=== PATIENT | female | born 1950 | race Caucasian/White ===

== ENCOUNTER 2016-12-10 12:14 | Inpatient (IN) ==
[2016-12-10] MEDS ORDERED: 0.9 % Sodium Chloride 1,000 ML IVC ONE (13:17)
[2016-12-10] MEDS ORDERED: Ondansetron 4 MG/2 ML VIAL IVP ONE (13:17)
--- NOTE | 2016-12-10 13:24 | Emergency Department Note ---
Disposition Clinical Impression: UTI (urinary tract infection) Qualifiers: Urinary tract infection type: acute cystitis Hematuria presence: without hematuria Qualified Code(s): N30.00 - Acute cystitis without hematuria Nausea & vomiting Qualifiers: Vomiting type: unspecified Vomiting Intractability: unspecified Qualified Code( s): R11.2 - Nausea with vomiting, unspecified Disposition: Admitted As Inpatient Condition: Fair Referrals: Funmilayo Najera MD [Primary Care Provider] - Forms: ED Satisfaction Letter Time of Disposition: 16:40 General Adult HPI - General Chief complaint: ED Nausea/Vomiting/Diarrhea Stated complaint: flu like symptoms since last Source: patient Limitations: no limitations Nursing Notes Reviewed: Yes Vital Signs Reviewed: Yes - History of Present Illness HPI Narrative: 56-year-old with generalized body ache some cough. Says she feels like she has the flu. She's had nausea vomiting and diarrhea not able to keep anything down. Pt Subjective Complaint: Cough generalized body aches Onset (ago): day(s) Location: upper extremity, lower extremity Radiation: non-radiation Pain Severity: moderate Pain Scale: 8 Quality: aching Consistency: constant Improves with: nothing Worsens with: nothing Associated symptoms: Reports: cough - Related Data Allergies Allergy/AdvReac Type Severity Reaction Status Date / Time ampicillin Allergy Hives Verified 12/10/16 12:39 All systems ED: reviewed and negative except as stated. Constitutional: Denies: fever, chills, weakness, weight change Eyes: Denies: eye pain, eye discharge, vision change ENT ED: Denies: ear pain, throat pain, dental pain, hearing loss, epistaxis, congestion, dysphagia Cardiovascular: Denies: chest pain, palpitations, dyspnea on exertion, edema, syncope Respiratory: Denies: cough, dyspnea, wheezes, hemoptysis, stridor Gastrointestinal: Denies: abdominal pain, nausea, vomiting, diarrhea, constipation, hematemesis, melena, hematochezia Genitourinary: Denies: dysuria, frequency, hematuria, discharge Musculoskeletal: Reports: arthralgia, myalgia. Denies: back pain, neck pain Integumentary: Denies: rash, abrasion, lesions Neurological: Denies: headache, weakness, numbness, paresthesias, confusion, abnormal gait, vertigo Psychiatric: Denies: anxiety, depression, suicidal thoughts, homicidal thoughts , auditory hallucinations, visual hallucinations Endocrine: Denies: fatigue Hematological/Lymphatic: Denies: easy bleeding, easy bruising Allergic/Immunologic: Denies: facial swelling, urticaria Past Medical History - Past Medical History Medical history: Reports: diabetes, hypertension Psychiatric history: Reports: no psych history - Social History Smoking Status: Never smoker Smokeless Tobacco Status: No Alcohol use: Reports: none Drug use: Reports: none Physical Exam - General Limitations: no limitations General appearance: alert, in no apparent distress - Head Head exam: atraumatic, normocephalic, normal inspection - Eye Eye exam: Present: normal appearance, PERRL, EOMI - ENT ENT exam: normal exam, normal oropharynx, mucous membranes moist - Neck Neck exam: Present: normal inspection, full ROM, trachea midline - Chest Chest inspection: Present: normal inspection, symmetric chest wall rise - Respiratory Respiratory exam: Present: normal lung sounds bilaterally - Cardiovascular Cardiovascular exam: Present: regular rate, normal rhythm, normal heart sounds - Abdominal Exam Abdominal exam: Present: soft, Non-Tender. Absent: tenderness, distention, guarding, rebound, rigidity - Extremities Exam Extremities exam: Present: normal inspection, full ROM. Absent: tenderness, pedal edema - Expanded Lower Extremity Exam Neurovascular/Tendon exam: Absent: motor deficit, sensory deficit, tendon deficit Gait: observed and normal - Back Exam Back exam: Present: normal inspection, full ROM. Absent: tenderness - Neurological Exam Neurological exam: Present: alert, oriented X3 - Psychiatric Psychiatric exam: Present: normal affect, normal mood - Skin Skin exam: Present: warm, dry, intact, normal color Course - Reevaluation(s) Reevaluation #1: The patient is 66-year-old with UTI nausea vomiting low-sodium patient will be admitted for IV antibiotics and fluids. Time: 17:40 - Consultations Consultation #1: Discussed with Dr. Dipesh jones. Time: 17:40 Vital Signs Temperature 97.5 F L 12/10/16 12:36 Pulse Rate 77 12/10/16 12:36 Respiratory Rate 16 12/10/16 12:36 Blood Pressure 111/74 12/10/16 12:36 O2 Sat by Pulse Oximetry 97 12/10/16 12:36 Temperature 97.5 F L 12/10/16 12:36 Pulse Rate 78 12/10/16 17:07 Respiratory Rate 16 12/10/16 17:07 Blood Pressure 102/63 12/10/16 17:07 O2 Sat by Pulse Oximetry 92 12/10/16 17:07 Oxygen Delivery Oxygen Delivery Room Air Medical Decision Making - Lab Data Result diagrams: 12/10/16 13:43 12/10/16 13:43 Lab Results 12/10/16 12/10/16 12/10/16 Range/Units 13:43 13:43 13:43 WBC 4.9 (4.3-11.1) K/mcL RBC 4.65 (3.82-4.97) M/mcL Hgb 14.0 (11.5-15.4) g/dL Hct 39.6 (35.3-44.9) % MCV 85.2 (83.0-100.0) fL MCH 30.1 (28.0-33.3) pg MCHC 35.4 (31.6-35.5) g/dL RDW 13.3 (11.5-14.5) % Plt Count 206 (140-400) K/mcL MPV 9.0 L (9.4-12.4) fL Immature Gran % 0.6 (0-4) % Seg Neutrophils % 83.9 % Lymphocytes % 9.1 % Monocytes % 6.0 % Eosinophils % 0.0 % Basophils % 0.4 % Neutrophils # 4.1 (1.6-8.9) K/mcL Lymphocytes # 0.5 L (0.6-4.6) K/mcL Monocytes # 0.3 (0.0-1.3) K/mcL Eosinophils # 0.0 (0.0-0.6) K/mcL Basophils # 0.0 (0.0-0.2) K/mcL Reactive Lymphocytes Present A (Not Present) Platelet Estimate Normal (Normal) Sodium 121 L (136-145) mEq/L Potassium 3.3 L (3.5-4.5) mEq/L Chloride 86 L (98-109) mEq/L Carbon Dioxide 24 (19-29) mEq/L BUN 17 (7-20) mg/dL Creatinine 1.01 (0.57-1.11) mg/dL Est GFR ( Amer) > 60 (> 60) Est GFR (Non-Af Amer) 55 L (> 60) BUN/Creatinine Ratio 17 (6-26) Glucose 184 H (70-99) mg/dL Calculated Osmolality 258 L (280-300) Calcium 9.7 (8.6-10.8) mg/dL Total Bilirubin 2.0 H (0.2-1.2) mg/dL Direct Bilirubin 0.7 H (0.0-0.5) mg/dL Indirect Bilirubin 1.3 H (0.0-1.2) mg/dL AST 34 (5-34) Units/L ALT 28 (0-55) Units/L Alkaline Phosphatase 65 (38-126) Units/L Troponin I (0-0.03) ng/mL Serum Total Protein 7.2 (6.0-8.3) g/dL Albumin 3.6 (3.5-5.0) g/dL Globulin 3.6 H (2.4-3.5) g/dL Albumin/Globulin Ratio 1.0 L (1.1-2.2) Amylase 65 (25-125) Units/L Lipase 41 (8-78) Units/L Urine Color (Yellow) Urine Clarity (Clear) Urine pH (5.0-8.0) pH Units Ur Specific [place] (1.010-1.025) Urine Protein (Neg-Trace) mg/dL Urine Glucose (UA) (Normal) mg/dL Urine Ketones (Negative) mg/dL Urine Blood (Negative) Urine Nitrite (Negative) Urine Bilirubin (Negative) Urine Urobilinogen (Normal) mg/dL Ur Leukocyte Esterase (Negative) Urine Microscopic RBC (0-3) per hpf Urine Microscopic WBC (0-3) per hpf Ur Squamous Epith Cells (None-Few) per lpf Urine Bacteria (None-Few) per hpf Hyaline Casts (None-Few) per lpf Ur Culture Indicated? (NO) 12/10/16 12/10/16 Range/Units 13:43 15:26 WBC (4.3-11.1) K/mcL RBC (3.82-4.97) M/mcL Hgb (11.5-15.4) g/dL Hct (35.3-44.9) % MCV (83.0-100.0) fL MCH (28.0-33.3) pg MCHC (31.6-35.5) g/dL RDW (11.5-14.5) % Plt Count (140-400) K/mcL MPV (9.4-12.4) fL Immature Gran % (0-4) % Seg Neutrophils % % Lymphocytes % % Monocytes % % Eosinophils % % Basophils % % Neutrophils # (1.6-8.9) K/mcL Lymphocytes # (0.6-4.6) K/mcL Monocytes # (0.0-1.3) K/mcL Eosinophils # (0.0-0.6) K/mcL Basophils # (0.0-0.2) K/mcL Reactive Lymphocytes (Not Present) Platelet Estimate (Normal) Sodium (136-145) mEq/L Potassium (3.5-4.5) mEq/L Chloride (98-109) mEq/L Carbon Dioxide (19-29) mEq/L BUN (7-20) mg/dL Creatinine (0.57-1.11) mg/dL Est GFR ( Amer) (> 60) Est GFR (Non-Af Amer) (> 60) BUN/Creatinine Ratio (6-26) Glucose (70-99) mg/dL Calculated Osmolality (280-300) Calcium (8.6-10.8) mg/dL Total Bilirubin (0.2-1.2) mg/dL Direct Bilirubin (0.0-0.5) mg/dL Indirect Bilirubin (0.0-1.2) mg/dL AST (5-34) Units/L ALT (0-55) Units/L Alkaline Phosphatase (38-126) Units/L Troponin I 0.01 (0-0.03) ng/mL Serum Total Protein (6.0-8.3) g/dL Albumin (3.5-5.0) g/dL Globulin (2.4-3.5) g/dL Albumin/Globulin Ratio (1.1-2.2) Amylase (25-125) Units/L Lipase (8-78) Units/L Urine Color Yellow (Yellow) Urine Clarity Cloudy A (Clear) Urine pH 6.0 (5.0-8.0) pH Units Ur Specific [place] 1.022 (1.010-1.025) Urine Protein Trace (Neg-Trace) mg/dL Urine Glucose (UA) Normal (Normal) mg/dL Urine Ketones Negative (Negative) mg/dL Urine Blood Negative (Negative) Urine Nitrite Negative (Negative) Urine Bilirubin Negative (Negative) Urine Urobilinogen Normal (Normal) mg/dL Ur Leukocyte Esterase Moderate H (Negative) Urine Microscopic RBC 3-5 H (0-3) per hpf Urine Microscopic WBC 50-100 H (0-3) per hpf Ur Squamous Epith Cells Many H (None-Few) per lpf Urine Bacteria None Seen (None-Few) per hpf Hyaline Casts Few (None-Few) per lpf Ur Culture Indicated? YES A (NO) - Radiology Data Radiology results reviewed: Yes I reviewed the patient's radiology results. Chest X-Ray 12/10/16 13:22 IMPRESSION: 1. No acute abnormality. D/ / Boyd Voss MD / Boyd Voss MD Interpreting Provider: Boyd Voss MD Abdomen/Pelvis CT 12/10/16 15:42 IMPRESSION: 1. No acute intra-abdominal process identified. 2. Focal region of hypoattenuation within the liver adjacent to the gallbladder fossa which is indeterminate and likely reflects focal fatty infiltration given its appearance and location. D/ / Binh Garsia MD / Binh Garsia MD Interpreting Provider: Binh Garsia MD
[2016-12-10 13:52] LABS: Basophils % 0.4 %; Hematocrit 39.6 % (35.3-44.9); Immature Granulocytes % 0.6 % (0-4); Lymphocytes % 9.1 %; Mean Corpuscular HGB Conc 35.4 g/dL (31.6-35.5); Mean Corpuscular Hemoglobin 30.1 pg (28.0-33.3); Mean Corpuscular Volume 85.2 fL (83.0-100.0); Monocytes # 0.3 K/mcL (0.0-1.3); Neutrophils # 4.1 K/mcL (1.6-8.9); Platelet Count 206 K/mcL (140-400); Red Blood Count 4.65 M/mcL (3.82-4.97); Red Cell Distribution Width 13.3 % (11.5-14.5); Segmented Neutrophils % 83.9 %
[2016-12-10 13:56] LABS: Lymphocytes # 0.5 K/mcL (0.6-4.6)
[2016-12-10 14:07] LABS: Albumin 3.6 g/dL (3.5-5.0); Bilirubin,Direct 0.7 mg/dL (0.0-0.5); Bilirubin,Indirect 1.3 mg/dL (0.0-1.2); Globulin 3.6 g/dL (2.4-3.5); Total Protein 7.2 g/dL (6.0-8.3)
[2016-12-10 14:15] LABS: Platelet Estimate Normal (Normal); Reactive Lymphocytes Present (Not Present)
[2016-12-10 14:28] LABS: BUN/Creatinine Ratio 17 (6-26); Blood Urea Nitrogen 17 mg/dL (7-20); Calcium 9.7 mg/dL (8.6-10.8); Carbon Dioxide 24 mEq/L (19-29); Chloride 86 mEq/L (98-109); Glucose 184 mg/dL (70-99); Lipase 41 Units/L (8-78); Osmolality,Calculated 258 (280-300); Potassium 3.3 mEq/L (3.5-4.5); Sodium 121 mEq/L (136-145); eGFR For African Americans > 60 (> 60); eGFR For Non-African Americans 55 (> 60)
[2016-12-10 15:45] LABS: Bilirubin,Urine Negative (Negative); Blood,Urine Negative (Negative); Clarity,Urine Cloudy (Clear); Color,Urine Yellow (Yellow); Glucose,Urine (UA) Normal (Normal); Ketones,Urine Negative (Negative); Leukocyte Esterase,Urine Moderate (Negative); Nitrite,Urine Negative (Negative); Protein,Urine Trace mg/dL (Neg-Trace); Specific Gravity,Urine 1.022 (1.010-1.025); Urobilinogen,Urine Normal (Normal)
[2016-12-10 15:48] LABS: Bacteria,Urine None Seen per hpf (None-Few); Hyaline Casts,Urine Few per lpf (None-Few); Squamous Epithelial Cell,Urine Many per lpf (None-Few); WBC,Urine 50-100 per hpf (0-3)
[2016-12-10] MEDS ORDERED: Levofloxacin 500 MG/100 ML 500 MG/100 ML BAG IVPB ONE (16:01)
[2016-12-10] MEDS: Ondansetron 4 MG/2 ML VIAL IVP PRN (19:11)
[2016-12-10] MEDS ORDERED: 0.9 % Sodium Chloride 1,000 ML ONE (19:20)
--- NOTE | 2016-12-10 19:44 | Internal Med History&Physical ---
Date of Encounter: 12/10/16 Time of Encounter: 19:42 Assessment and Plan (1) Enteritis Current visit: Yes Status: Acute Hydrate. symptomatic treatment. check stool studies. suspect viral etiology. Hold metformin (2) Hyponatremia Current visit: Yes Status: Acute Hypovolemic hyponatremia due to diarrhea. She had received a bolus of normal saline 1L in the emergency room. Will check sodium every 4 hours and adjust fluids accordingly. Plan to increase sodium no faster than .5 mEq per hour and 8 to 10 mEq per day. (3) Diabetes mellitus type 2 in obese Current visit: Yes Status: Acute Sliding scale insulin (4) UTI (urinary tract infection) Current visit: Yes Status: Acute Levaquin. Check urine culture Qualifiers: Urinary tract infection type: acute cystitis Hematuria presence: without hematuria Qualified Code(s): N30.00 - Acute cystitis without hematuria Internal Medicine - H&P: HPI Chief complaint: nausea and diarrhea History of present illness: Ms. Gale is a 66 year old female with history of diabetes mellitus type II on metformin, hypertension, Gerd presents to the emergency room today with a complaint of nausea and diarrhea. For the past couple days patient has been nauseous unable to tolerate any food or drinks, she has been having watery diarrhea approximately 4 bowel movements daily without mucus or blood. She has been having subjective fevers and chills. She denies abdominal pain. No suspicious food intake. No sick contacts a recent travel. Past Med Surg Social Fam HX - Past Medical History Medical history: diabetes, hypertension Psychiatric history: no psych history - Past Surgical History Surgical History: colectomy, hysterectomy - Social History Smoking Status: Never smoker Smokeless Tobacco Status: No Alcohol use: none Drug use: none - Family History Mother Hx Family Cardiac Disorders: Yes Hx Family Respiratory Disorders: No Hx Family Cancer: No Hx Family GI Disorders: No Hx Family Genitourinary Disorders: No Hx Family Endocrine Disorder: No Hx Family Musculoskeletal Disorders: No Hx Family Neuromuscular Disorders: No Hx Family Neurologic Disorders: No Hx Family HEENT Disorders: No Hx Family Autoimmune Disorders: No Hx Family Reproductive Disorders: No Hx Family Psychosocial Disorders: No Father Living Status: Hx Family Cardiac Disorders: Yes Hx Family Respiratory Disorders: Yes Hx Family Cancer: Yes Hx Family GI Disorders: No Hx Family Genitourinary Disorders: No Hx Family Endocrine Disorder: No Hx Family Musculoskeletal Disorders: No Hx Family Neuromuscular Disorders: No Internal Medicine - H&P: Meds Atenolol [Tenormin] 50 mg PO DAILY 12/10/16 [History] Atorvastatin [Lipitor] 10 mg PO HS 12/10/16 [History] Famotidine [Heartburn Prevention] 20 mg PO BID 12/10/16 [History] Lisinopril-HCTZ 20-12.5 [Prinzide 20-12.5] 2 each PO DAILY 12/10/16 [History] Metformin HCl [Glucophage] 1,000 mg PO BID 12/10/16 [History] Allergies ampicillin Allergy (Verified 12/10/16 12:39) Hives All Systems PM: A 10-system review of systems was performed and is negative for pertinent findings except as documented above in the HPI. Review of systems: 10 point review of systems is negative except for HPI - Constitutional Vitals: Temp Pulse Resp BP Pulse Ox 98.2 F 66 16 105/65 96 12/10/16 19:03 12/10/16 19:03 12/10/16 19:03 12/10/16 18:58 12/10/16 19:03 Exam: Gen.: patient is alert oriented times 3 cardiac: normal S1 S2 no additional sounds or murmurs chest: no active wheezing or bronchial breathing abdomen soft nontender nondistended normal bowel sounds lower extremity no swelling. Neuro: no new focal deficits Internal Med - H&P Results - Labs CBC & Chem 7: 12/10/16 13:43 12/10/16 13:43
[2016-12-10] MEDS: Insulin LISPRO 300 UNITS/3 ML VIAL SQ SCH (20:19)
[2016-12-11] MEDS: Ondansetron 4 MG/2 ML VIAL IVP PRN (00:30)
[2016-12-11] MEDS: *HR* Promethazine 25 MG/ML VIAL IVP PRN ×3 (03:03→19:42)
[2016-12-11 04:11] LABS: Basophils % 0.5 %; Hematocrit 35.8 % (35.3-44.9); Hemoglobin 12.6 g/dL (11.5-15.4); Lymphocytes # 0.7 K/mcL (0.6-4.6); Lymphocytes % 18.1 %; Mean Corpuscular HGB Conc 35.2 g/dL (31.6-35.5); Mean Corpuscular Hemoglobin 30.4 pg (28.0-33.3); Mean Corpuscular Volume 86.3 fL (83.0-100.0); Mean Platelet Volume 9.8 fL (9.4-12.4); Monocytes # 0.3 K/mcL (0.0-1.3); Monocytes % 8.7 %; Neutrophils # 2.8 K/mcL (1.6-8.9); Platelet Count 181 K/mcL (140-400); Red Blood Count 4.15 M/mcL (3.82-4.97); Red Cell Distribution Width 13.4 % (11.5-14.5); Segmented Neutrophils % 71.7 %
[2016-12-11 04:26] LABS: BUN/Creatinine Ratio 15 (6-26); Blood Urea Nitrogen 15 mg/dL (7-20); Calcium 8.8 mg/dL (8.6-10.8); Carbon Dioxide 25 mEq/L (19-29); Chloride 89 mEq/L (98-109); Glucose 152 mg/dL (70-99); Magnesium 1.9 mg/dL (1.6-2.6); Osmolality,Calculated 266 (280-300); Potassium 3.5 mEq/L (3.5-4.5); Sodium 126 mEq/L (136-145); eGFR For African Americans > 60 (> 60); eGFR For Non-African Americans 55 (> 60)
[2016-12-11 05:07] LABS: Platelet Estimate Normal (Normal)
[2016-12-11] MEDS: Insulin LISPRO 300 UNITS/3 ML VIAL SQ SCH ×4 (08:42→20:54)
[2016-12-11] MEDS: Famotidine 20 MG/2 ML VIAL IVP SCH (08:44)
--- NOTE | 2016-12-11 13:28 | Internal Med Progress Note ---
<CarlossherryDany peng - Last Filed: 12/11/16 13:25> Date of Encounter: 12/11/16 Time of Encounter: 09:45 - Assessment and plan (1) Enteritis Current Visit: Yes Status: Acute Assessment and plan: Likely viral in origin, no food exposure, no sick contacts, no travel outside the country, no recent antibiotic use. No blood or mucus in the stool. Patient has not had a BM in hospital. Will check Stool once she does. Continue phenergen and zofran for nausea (2) Hyponatremia Current Visit: Yes Status: Acute Assessment and plan: likely secondary to diarrhea. Patient had Na of 121 upon admission. She was given 1 L bolus NS in ED. She was started on NS at a rate of /hr and her Q4 Na has gone 125, 126, 126, 124, 127. Her IV fluids were stopped. Continue to correct Na at a rate of 8-10 a day. (3) Diabetes mellitus type 2 in obese Current Visit: Yes Status: Acute Assessment and plan: Hold metformin continue SSI. continue home HTN and HLD medications. (4) UTI (urinary tract infection) Current Visit: Yes Status: Acute Assessment and plan: Patient's UA showed Cloudy urine, mod leukesterase, 3-5 RBC 50-100 WBC, no bacteria, and many squamous epithelial cells. It grew no organisms on culture. Likely a contaminiated UA. Will discontinue Levaquin as patient is asymptomatic and culture negative. Qualifiers: Urinary tract infection type: acute cystitis Hematuria presence: without hematuria Qualified Code(s): N30.00 - Acute cystitis without hematuria - Subjective Interval history: Patient admitted for Nausea and Diarrhea for the last 2 days. Patient was not tolerating PO intake at home. and had subjective fever/chills and myalgias. Patient reports continued nausea. Denies BM since admission, no vomiting, no burnign with urination, and myalgias have improved. Urine culture negative. - Constitutional Vitals: Temp Pulse Resp BP Pulse Ox 98.2 F 65 14 104/71 97 12/11/16 11:39 12/11/16 11:39 12/11/16 11:39 12/11/16 11:39 12/11/16 11:39 General appearance: Present: A&O X 3, no acute distress - Eye Eye exam: Present: PERRL - ENT ENT exam: Present: mucous membranes moist - Respiratory Respiratory exam: Present: CTAB. Absent: rales, rhonchi, wheezes - Cardiovascular Cardiovascular exam: Present: RRR, +S1, +S2. Absent: gallop, rubs, systolic murmur - GI/Abdominal GI/Abdominal exam: Present: normal bowel sounds, soft. Absent: tenderness - Extremities Exam Extremities exam: Absent: calf tenderness, cyanotic, pedal edema - Neurological Exam Neurological exam: Present: alert, oriented X3. Absent: speech deficit - Psychiatric Psychiatric exam: Present: normal affect, normal mood - Skin Skin exam: Present: dry, warm Internal Medicine: Result - Labs CBC & Chem 7: 12/11/16 03:16 12/11/16 07:33 Labs: Short CBC 12/11/16 Range/Units 03:16 WBC 3.9 L (4.3-11.1) K/mcL Hgb 12.6 (11.5-15.4) g/dL Hct 35.8 (35.3-44.9) % Plt Count 181 (140-400) K/mcL Neutrophils # 2.8 (1.6-8.9) K/mcL BMP 12/10/16 12/11/16 12/11/16 20:00 00:51 03:16 Sodium 125 L 126 L 126 L Potassium 3.5 Chloride 89 L Carbon Dioxide 25 BUN 15 Creatinine 1.01 Glucose 152 H Calcium 8.8 12/11/16 12/11/16 03:16 07:33 Sodium 124 L 127 L Potassium Chloride Carbon Dioxide BUN Creatinine Glucose Calcium Consult Discharge Plan - Plan Referrals: Funmilayo Najera MD [Primary Care Provider] - <Zack Kemp - Last Filed: 12/11/16 18:35> Date of Encounter: 12/11/16 - Constitutional Vitals: Temp Pulse Resp BP Pulse Ox 97.7 F 61 15 98/62 95 12/11/16 14:41 12/11/16 14:41 12/11/16 14:41 12/11/16 14:41 12/11/16 14:41 Internal Medicine: Result - Labs CBC & Chem 7: 12/11/16 03:16 12/11/16 14:26 Labs: Short CBC 12/11/16 Range/Units 03:16 WBC 3.9 L (4.3-11.1) K/mcL Hgb 12.6 (11.5-15.4) g/dL Hct 35.8 (35.3-44.9) % Plt Count 181 (140-400) K/mcL Neutrophils # 2.8 (1.6-8.9) K/mcL BMP 12/10/16 12/11/16 12/11/16 20:00 00:51 03:16 Sodium 125 L 126 L 126 L Potassium 3.5 Chloride 89 L Carbon Dioxide 25 BUN 15 Creatinine 1.01 Glucose 152 H Calcium 8.8 12/11/16 12/11/16 12/11/16 03:16 07:33 14:26 Sodium 124 L 127 L 125 L Potassium Chloride Carbon Dioxide BUN Creatinine Glucose Calcium - Attending Attestation I examined this patient and my medical decision-making was reviewed with the Resident Physician, Dr. Martinez. I agree with the documented findings, disposition and treatment plan as described except to the extent set forth below. I have independently obtained history and examined the patient and my findings are summarized below: Patient reports that her vomiting and diarrhea has resolved she continues to have nausea and decreased oral intake. We will continue with Levaquin and IV fluids. Supportive care.
--- NOTE | 2016-12-11 15:23 | Electrocardiograph Report ---
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
[2016-12-11] MEDS ORDERED: Levofloxacin 500 MG/100 ML 500 MG/100 ML BAG IVPB SCH (16:00)
[2016-12-11] MEDS: 0.9 % Sodium Chloride 1,000 ML IVC SCH (17:33)
[2016-12-12 03:50] LABS: Hematocrit 37.7 % (35.3-44.9); Hemoglobin 13.3 g/dL (11.5-15.4); Mean Corpuscular HGB Conc 35.3 g/dL (31.6-35.5); Mean Corpuscular Hemoglobin 30.4 pg (28.0-33.3); Mean Corpuscular Volume 86.1 fL (83.0-100.0); Mean Platelet Volume 9.7 fL (9.4-12.4); Platelet Count 195 K/mcL (140-400); Red Blood Count 4.38 M/mcL (3.82-4.97); Red Cell Distribution Width 13.5 % (11.5-14.5)
[2016-12-12] MEDS: 0.9 % Sodium Chloride 1,000 ML IVC SCH (03:53)
[2016-12-12 04:00] LABS: BUN/Creatinine Ratio 13 (6-26); Blood Urea Nitrogen 12 mg/dL (7-20); Calcium 8.9 mg/dL (8.6-10.8); Carbon Dioxide 27 mEq/L (19-29); Chloride 96 mEq/L (98-109); Glucose 121 mg/dL (70-99); Osmolality,Calculated 275 (280-300); Potassium 3.2 mEq/L (3.5-4.5); eGFR For African Americans > 60 (> 60); eGFR For Non-African Americans > 60 (> 60)
[2016-12-12 04:02] LABS: Sodium 132 mEq/L (136-145)
[2016-12-12] MEDS ORDERED: Potassium Chloride Elixir 20 MEQ/15 ML UDC PO ONE (08:01)
[2016-12-12] MEDS: Insulin LISPRO 300 UNITS/3 ML VIAL SQ SCH ×2 (08:08→12:27)
[2016-12-12] MEDS: Famotidine 20 MG/2 ML VIAL IVP SCH (08:16)
[2016-12-12 10:54] VITALS: BP 105/63
--- NOTE | 2016-12-12 12:56 | Discharge Summary ---
Date of Encounter: 12/12/16 Time of Encounter: 12:15 - Discharge Diagnosis (1) Enteritis Priority: Primary Status: Acute Comments: Patient was able tolerate a regular diet prior to discharge. No bowel movements while admitted. (2) Nausea & vomiting Priority: Primary Status: Resolved Qualifiers: Vomiting type: unspecified Vomiting Intractability: non-intractable Qualified Code(s): R11.2 - Nausea with vomiting, unspecified (3) Hypokalemia Priority: Primary Status: Acute Comments: Repleted prior to discharge, likely resolved. Mild. Magnesium normal. Diarrhea has subsided, follow-up outpatient (4) UTI (urinary tract infection) Priority: Primary Status: Ruled-out Comments: Patient asymptomatic and urine culture negative. Ruled out. Qualifiers: Urinary tract infection type: acute cystitis Hematuria presence: without hematuria Qualified Code(s): N30.00 - Acute cystitis without hematuria (5) Hyponatremia Priority: Primary Status: Acute Comments: Improved and nearly resolved during admission. No prior lab values to determine chronicity. Likely secondary to poor by mouth intake secondary to gastroenteritis. Tolerated a regular diet prior to discharge. (6) Diabetes mellitus type 2 in obese Priority: Secondary Status: Chronic Comments: Appears well controlled, no recent A1c. Continue follow up outpatient. - Discharge Medications Prescriptions: Promethazine [Phenergan] 12.5 mg PO Q6HR PRN #15 tablet PRN Reason: Nausea And Vomiting Home Medications: Atenolol [Tenormin] 50 mg PO DAILY 12/10/16 [History] Atorvastatin [Lipitor] 10 mg PO HS 12/10/16 [History] Famotidine [Heartburn Prevention] 20 mg PO BID 12/10/16 [History] Lisinopril-HCTZ 20-12.5 [Prinzide 20-12.5] 2 each PO DAILY 12/10/16 [History] Metformin HCl [Glucophage] 1,000 mg PO BID 12/10/16 [History] Cetirizine HCl [Zyrtec] 10 mg PO DAILY 12/11/16 [History] Promethazine [Phenergan] 12.5 mg PO Q6HR PRN #15 tablet 12/12/16 [Rx] Allergies/Adverse Reactions: Allergies ampicillin Allergy (Verified 12/10/16 12:39) Hives Date of admission: 12/10/16 17:46 Primary care physician: Funmilayo Najera Consults: 12/10/16 19:34 Consult to Occupational Therapy [CONS] Routine Comment: Evaluate, develop and implement POC Reason for Consult: weakness Consult to Physical Therapy [CONS] Routine Comment: Evaluate, develop and implement POC Reason for Consult: weakness 12/11/16 10:06 Consult to Air Route Controller [CONS] Routine Reason for SW Consult: discharge planning Discharging clinician: Lynda Gimenez Anticipated date of discharge: 12/12/16 - Patient Status Disposition: Home, Self-Care Condition: Fair Functional capacity at discharge: independent ambulation Overall status at discharge: patient is back to baseline - Discharge Instructions Follow Up With: Funmilayo Najera MD [Primary Care Provider] - Additional Instructions: Follow-up with primary care provider within one to 2 weeks - Diet and Activity Activity: increase activity as tolerated Diet: diabetic diet Hospital course: Ms. Gale is a 66 year old female with past medical history of diabetes, hypertension, GERD, prior colectomy, prior hysterectomy. Patient presented to the emergency department chief complaint of nausea and diarrhea. Patient stating on the 2-3 days prior to presentation, she was nauseous and unable to tolerate any food or drink. She also endorsed watery diarrhea approximately 4 times a day. She denied mucus or blood in her stools. Patient also endorsed subjective fevers and chills. She denied abdominal pain. She denied recent sick contacts or recent travel. Workup in the emergency department notable for hyponatremia and hypoosmolality, mild hypokalemia. Chest x-ray negative. Abdominal CT negative for acute processes. Patient was admitted to the hospitalist service for further evaluation and management. She was treated with IV fluids and anti-emetics. She was admitted and observed over the course of 2 nights. Her hyponatremia and hypoosmolality improved. Abnormal urinalysis noted however urine culture was negative and the patient was asymptomatic so urinary tract infection was ruled out. She did not have any bowel movements while admitted, her diarrhea had resolved. She was able tolerate a regular diet while admitted. She was seen and evaluated by occupational and physical therapy both of him surmised she had no needs. She was discharged home in stable condition with close outpatient follow-up recommended. Of note, patient stating she felt "sweaty and out of it" after she had been given IV ondansetron so she was sent home with Phenergan. ITS Impressions Chest X-Ray 12/10/16 13:22 IMPRESSION: 1. No acute abnormality. D/ / Boyd Voss MD / Boyd Voss MD Interpreting Provider: Boyd Voss MD Abdomen/Pelvis CT 12/10/16 15:42 IMPRESSION: 1. No acute intra-abdominal process identified. 2. Focal region of hypoattenuation within the liver adjacent to the gallbladder fossa which is indeterminate and likely reflects focal fatty infiltration given its appearance and location. D/ / Binh Garsia MD / Binh Garsia MD Interpreting Provider: Binh Garsia MD - Time Spent with Patient Total time spent providing and/or coordinating discharge services: - Constitutional Vitals: Temp Pulse Resp BP Pulse Ox 99.0 F 69 15 105/63 97 12/12/16 10:53 12/12/16 10:53 12/12/16 10:53 12/12/16 10:53 12/12/16 10:53 General appearance: Present: A&O X 3, pleasant, no acute distress, answers questions appropriately - Head Head exam: Present: atraumatic, normocephalic - Eye Eye exam: Present: PERRL, conjuntiva pink, sclera anicteric Pupils: Present: PERRL - Neck Neck exam general surgery: Present: supple, trachea midline. Absent: lymphadenopathy - Respiratory Respiratory exam: Present: CTAB. Absent: accessory muscle use, rales, respiratory distress, rhonchi, wheezes - Cardiovascular Cardiovascular exam: Present: RRR, +S1, +S2. Absent: diastolic murmur, gallop, rubs, systolic murmur - GI/Abdominal GI/Abdominal exam: Present: normal bowel sounds, soft, no peritoneal signs. Absent: distended, tenderness - Extremities Exam Extremities exam: Present: warm, radial pulses palpable and symetrical. Absent : calf tenderness, cyanotic, pedal edema - Neurological Exam Neurological exam: Present: alert, CN II-XII intact, normal gait, oriented X3, no focal deficits, strengths equal and symetr throughout. Absent: pronater drift, facial droop, speech deficit - Skin Skin exam: Present: dry, intact, normal color, warm
== END 2016-12-12 14:20 | disposition home or self-care (01) | DRG 392 ==
LOC: EMEROO 12:14 → 3BNU 12:14 → SUATTDRO 17:46 → 3BNU 18:00
PROVIDERS: ADMIT Hospitalist; ATTEND Nurse Practitioner Family

== ENCOUNTER 2019-02-02 12:07 | Observation (INO) ==
[2019-02-02] MEDS ORDERED: Ondansetron 4 MG/2 ML VIAL IVP ONE (13:10)
[2019-02-02] MEDS ORDERED: 0.9 % Sodium Chloride 1,000 ML IVC ONE (13:10)
[2019-02-02 13:35] LABS: Basophils % 0.2 %; Eosinophils # 0.1 K/mcL (0.0-0.6); Eosinophils % 0.6 %; Hematocrit 35.4 % (35.3-44.9); Hemoglobin 12.1 g/dL (11.5-15.4); Immature Granulocytes % 0.6 % (0-4); Lymphocytes # 1.3 K/mcL (0.6-4.6); Lymphocytes % 9.2 %; Mean Corpuscular HGB Conc 34.2 g/dL (31.6-35.5); Mean Corpuscular Hemoglobin 28.3 pg (28.0-33.3); Mean Corpuscular Volume 82.9 fL (83.0-100.0); Monocytes # 0.7 K/mcL (0.0-1.3); Monocytes % 5.2 %; Neutrophils # 11.8 K/mcL (1.6-8.9); Platelet Count 430 K/mcL (140-400); Red Blood Count 4.27 M/mcL (3.82-4.97); Segmented Neutrophils % 84.2 %
[2019-02-02 13:37] LABS: VBG HCO3 26 mEq/L (21-27); VBG PCO2 50 mmHg (41-51); VBG PH 7.33 pH Units (7.32-7.42); VBG PO2 52 mmHg (25-50)
[2019-02-02 13:46] LABS: Bilirubin,Urine Moderate (Negative); Blood,Urine Negative (Negative); Clarity,Urine Clear (Clear); Color,Urine Dark Yellow (Yellow); Glucose,Urine (UA) Normal (Normal); Ketones,Urine Negative (Negative); Leukocyte Esterase,Urine Negative (Negative); Nitrite,Urine Negative (Negative); Protein,Urine Trace mg/dL (Neg-Trace); Specific Gravity,Urine > 1.030 (1.010-1.025); Urobilinogen,Urine Normal (Normal)
[2019-02-02 13:56] LABS: BUN/Creatinine Ratio 13 (6-26); Blood Urea Nitrogen 17 mg/dL (8-23); Calcium 10.1 mg/dL (8.6-10.3); Carbon Dioxide 22 mEq/L (23-29); Chloride 87 mEq/L (98-107); Glucose 151 mg/dL (70-105); Magnesium 1.6 mg/dL (1.6-2.6); Osmolality,Calculated 248 (280-300); Potassium 4.6 mEq/L (3.5-5.1); Sodium 117 mEq/L (136-145); Troponin I < 0.03 ng/mL (< 0.04); eGFR For African Americans 49 (> 60); eGFR For Non-African Americans 41 (> 60)
[2019-02-02 15:31] LABS: Albumin/Globulin Ratio 1.6 (1.1-2.2); Bilirubin,Direct 0.1 mg/dL (0.0-0.2); Bilirubin,Indirect 0.4 mg/dL (0.0-1.2); Bilirubin,Total 0.5 mg/dL (0.3-1.0); Globulin 2.5 g/dL (2.4-3.5); Total Protein 6.5 g/dL (6.4-8.9)
[2019-02-02] MEDS ORDERED: Naloxone 0.4 MG/ML INJ IVP PRN (16:30)
[2019-02-02] MEDS ORDERED: Ondansetron ODT 4 MG TAB.RAPDIS SL PRN (16:30)
[2019-02-02] MEDS ORDERED: D5% in Water 1,000 ML IVC PRN (17:19)
[2019-02-02] MEDS ORDERED: *HR* Dextrose 50 % in Water (Syg) 50 ML SYRINGE IVP PRN (17:19)
[2019-02-02] MEDS ORDERED: Dextrose Gel 15 GM/37.5 ML TUBE PO PRN ×2 (17:19)
[2019-02-02] MEDS: 0.9 % Sodium Chloride 1,000 ML IVC SCH (17:54)
[2019-02-02] MEDS: Insulin LISPRO 300 UNITS/3 ML VIAL SQ SCH (18:32)
[2019-02-02 19:49] LABS: Calcium 9.7 mg/dL (8.6-10.3); Potassium 4.1 mEq/L (3.5-5.1)
[2019-02-02] MEDS ORDERED: Insulin LISPRO 300 UNITS/3 ML VIAL SQ SCH (21:00)
[2019-02-02] MEDS ORDERED: Gabapentin 300 MG CAPSULE PO SCH (21:00)
[2019-02-02 23:48] LABS: Calcium 9.3 mg/dL (8.6-10.3); Potassium 4.3 mEq/L (3.5-5.1)
[2019-02-03] MEDS: 0.9 % Sodium Chloride 1,000 ML IVC SCH (03:22)
[2019-02-03 04:06] LABS: Hematocrit 33.5 % (35.3-44.9); Hemoglobin 11.1 g/dL (11.5-15.4); Mean Corpuscular HGB Conc 33.1 g/dL (31.6-35.5); Mean Corpuscular Hemoglobin 28.2 pg (28.0-33.3); Mean Corpuscular Volume 85.2 fL (83.0-100.0); Mean Platelet Volume 8.8 fL (9.4-12.4); Platelet Count 361 K/mcL (140-400); Red Blood Count 3.93 M/mcL (3.82-4.97); Red Cell Distribution Width 15.5 % (11.5-14.5); White Blood Count 8.7 K/mcL (4.3-11.1)
[2019-02-03 04:25] LABS: Calcium 9.1 mg/dL (8.6-10.3); Potassium 4.2 mEq/L (3.5-5.1)
[2019-02-03 07:16] VITALS: BP 106/70
[2019-02-03] MEDS: Insulin LISPRO 300 UNITS/3 ML VIAL SQ SCH (08:06)
[2019-02-03 08:10] LABS: Creatinine,Urine 26 mg/dL
[2019-02-03 08:11] LABS: BUN/Creatinine Ratio 12 (6-26); Blood Urea Nitrogen 13 mg/dL (8-23); Calcium 9.4 mg/dL (8.6-10.3); Carbon Dioxide 28 mEq/L (23-29); Chloride 98 mEq/L (98-107); Glucose 121 mg/dL (70-105); Osmolality,Calculated 273 (280-300); Potassium 4.3 mEq/L (3.5-5.1); Sodium 131 mEq/L (136-145); eGFR For African Americans > 60 (> 60); eGFR For Non-African Americans 50 (> 60)
[2019-02-03] MEDS ORDERED: Aspirin Enteric Coated 81 MG Tablet PO SCH (09:00)
[2019-02-03] MEDS ORDERED: hydroCHLOROthiazide 25 MG TABLET PO SCH (09:00)
[2019-02-03] MEDS ORDERED: Cyanocobalamin (B-12) 1,000 MCG TABLET PO SCH (09:00)
[2019-02-03] MEDS ORDERED: Valsartan 80 MG TABLET PO SCH (09:00)
== END 2019-02-03 11:32 | disposition home or self-care (01) ==
LOC: EMEROOARM 12:07 → 2ANU 12:07 → SUATTDRO 15:09 → 2ANU 15:10
PROVIDERS: ADMIT Family Medicine; ATTEND Family Medicine

== ENCOUNTER 2019-11-30 13:01 | Observation (INO) ==
[2019-11-30] MEDS ORDERED: 0.9 % Sodium Chloride 1,000 ML IVC ONE (13:14)
[2019-11-30 13:24] LABS: Hematocrit 42.2 % (35.3-44.9); Mean Corpuscular HGB Conc 33.2 g/dL (31.6-35.5); Mean Corpuscular Volume 87.4 fL (83.0-100.0); Mean Platelet Volume 9.1 fL (9.4-12.4); Platelet Count 444 K/mcL (140-400); Red Blood Count 4.83 M/mcL (3.82-4.97); Red Cell Distribution Width 14.3 % (11.5-14.5); White Blood Count 9.9 K/mcL (4.3-11.1)
[2019-11-30 13:30] LABS: INR 0.9; Prothrombin Time 10.7 Seconds (9.4-12.1)
[2019-11-30 13:33] LABS: Activated Partial Thrombo Time 29.7 Seconds (26.0-36.0)
[2019-11-30 13:35] LABS: BUN/Creatinine Ratio 16 (6-26); Blood Urea Nitrogen 15 mg/dL (8-23); Calcium 10.9 mg/dL (8.6-10.3); Carbon Dioxide 29 mEq/L (23-29); Chloride 90 mEq/L (98-107); Creatine Kinase 58 Units/L (30-223); Glucose 144 mg/dL (70-105); Osmolality,Calculated 275 (280-300); Potassium 3.9 mEq/L (3.5-5.1); Sodium 131 mEq/L (136-145); eGFR For African Americans > 60 (> 60); eGFR For Non-African Americans > 60 (> 60)
[2019-11-30 13:37] LABS: Troponin I < 0.03 ng/mL (< 0.04)
[2019-11-30] MEDS ORDERED: Isovue-370 500 ML BOTTLE IVP ONE (13:38)
[2019-11-30] MEDS ORDERED: Aspirin 325 MG TABLET PO ONE (13:48)
[2019-11-30 15:00] LABS: Bilirubin,Urine Negative (Negative); Blood,Urine Negative (Negative); Clarity,Urine Clear (Clear); Color,Urine Light-Yellow (Yellow); Glucose,Urine (UA) Normal (Normal); Ketones,Urine Negative (Negative); Leukocyte Esterase,Urine Negative (Negative); Nitrite,Urine Negative (Negative); PH,Urine 6.5 pH Units (5.0-8.0); Protein,Urine Trace mg/dL (Neg-Trace); Specific Gravity,Urine > 1.030 (1.010-1.025); Urobilinogen,Urine Normal (Normal)
[2019-11-30] MEDS ORDERED: Ondansetron 4 MG/2 ML VIAL IVP PRN (16:35)
[2019-11-30] MEDS ORDERED: Mag Hydrox/Al Hydrox/Simeth 30 ML UDC PO PRN (16:35)
[2019-11-30] MEDS ORDERED: *HR* HYDROcodone/Acet 5/325 mg TABLET PO PRN (16:35)
[2019-11-30] MEDS ORDERED: MOM Conc 10 ML UD.LIQ PO PRN (16:35)
[2019-11-30] MEDS ORDERED: Acetaminophen 325 MG TABLET PO PRN (16:35)
[2019-11-30] MEDS ORDERED: Naloxone 0.4 MG/ML INJ IVP PRN (16:35)
[2019-11-30] MEDS ORDERED: *HR* Promethazine 25 MG/ML VIAL IVP PRN (16:35)
[2019-11-30] MEDS ORDERED: D5% in Water 1,000 ML IVC PRN (16:37)
[2019-11-30] MEDS ORDERED: Dextrose Gel 15 GM/37.5 ML TUBE PO PRN ×2 (16:37)
[2019-11-30] MEDS ORDERED: *HR* Dextrose 50 % in Water (Vial) 50 ML VIAL IVP PRN (16:37)
[2019-11-30] MEDS: *HR* Heparin 5,000 UNIT/ML VIAL SQ SCH (18:25)
[2019-11-30] MEDS: Insulin LISPRO 300 UNITS/3 ML VIAL SQ SCH (20:46)
[2019-11-30] MEDS: Aspirin Enteric Coated 81 MG Tablet PO SCH (20:47)
[2019-12-01 04:17] LABS: Basophils % 0.3 %; Eosinophils # 0.1 K/mcL (0.0-0.6); Eosinophils % 1.7 %; Hematocrit 35.7 % (35.3-44.9); Hemoglobin 11.7 g/dL (11.5-15.4); Immature Granulocytes % 0.4 % (0-4); Lymphocytes # 2.1 K/mcL (0.6-4.6); Mean Corpuscular HGB Conc 32.8 g/dL (31.6-35.5); Mean Corpuscular Hemoglobin 28.7 pg (28.0-33.3); Mean Corpuscular Volume 87.7 fL (83.0-100.0); Monocytes # 0.5 K/mcL (0.0-1.3); Monocytes % 6.8 %; Neutrophils # 4.9 K/mcL (1.6-8.9); Platelet Count 330 K/mcL (140-400); Red Blood Count 4.07 M/mcL (3.82-4.97); Red Cell Distribution Width 14.3 % (11.5-14.5); Segmented Neutrophils % 63.8 %; White Blood Count 7.7 K/mcL (4.3-11.1)
[2019-12-01 04:39] LABS: BUN/Creatinine Ratio 15 (6-26); Blood Urea Nitrogen 13 mg/dL (8-23); Calcium 9.7 mg/dL (8.6-10.3); Carbon Dioxide 29 mEq/L (23-29); Chloride 97 mEq/L (98-107); Chol/HDL Ratio 3.4 (0-4.9); Cholesterol 131 mg/dL (< 200); Glucose 127 mg/dL (70-105); HDL Cholesterol 39 mg/dL (40-59); LDL Cholesterol,Calculated 44 mg/dL (< 100); Magnesium 1.7 mg/dL (1.6-2.6); Osmolality,Calculated 280 (280-300); Phosphorous 2.9 mg/dL (2.7-4.5); Potassium 3.7 mEq/L (3.5-5.1); Sodium 134 mEq/L (136-145); Triglycerides 240 mg/dL (< 150); eGFR For African Americans > 60 (> 60); eGFR For Non-African Americans > 60 (> 60)
[2019-12-01] MEDS: *HR* Heparin 5,000 UNIT/ML VIAL SQ SCH ×2 (05:24→17:44)
[2019-12-01] MEDS ORDERED: Perflutren Lipid Microsphere 1.3 ML in 0.9 % Sodium Chloride 8.7 ML IVP PRN (08:49)
[2019-12-01] MEDS: Insulin LISPRO 300 UNITS/3 ML VIAL SQ SCH ×4 (08:50→21:33)
[2019-12-01 08:57] LABS: Estimated Average Glucose 186 mg/dl; Hemoglobin A1C 8.1 %
[2019-12-01] MEDS ORDERED: Ergocalciferol (VIT D2) 50,000 UNIT (1.25MG) CAP PO SCH (16:33)
[2019-12-01] MEDS: Aspirin Enteric Coated 81 MG Tablet PO SCH (21:34)
[2019-12-02] MEDS: *HR* Heparin 5,000 UNIT/ML VIAL SQ SCH (05:52)
[2019-12-02 06:29] VITALS: BP 152/78
[2019-12-02] MEDS: Insulin LISPRO 300 UNITS/3 ML VIAL SQ SCH (08:32)
[2019-12-02] MEDS ORDERED: Valsartan 80 MG TABLET PO SCH (09:00)
[2019-12-02] MEDS ORDERED: atenoloL 50 MG TABLET PO SCH (09:00)
== END 2019-12-02 11:37 | disposition home or self-care (01) ==
LOC: 3BNU 13:01 → EMEROOARM 13:01 → 3BNU 15:58
PROVIDERS: ADMIT Internal Medicine; ATTEND Internal Medicine